=== PATIENT | male | born 1955 | race Caucasian/White ===

== ENCOUNTER 2017-07-03 19:46 | Outpatient (CLI) | payer MEDICAID | END 2017-07-03 19:47 | disposition short-term general hospital (02) | LOC: EMS 19:46 | PROVIDERS: ATTEND Surgery | DX: I21.3 ST elevation (STEMI) myocardial infarction of unspecified site (principal) | CPT/HCPCS: A0425; A0426 ==

== ENCOUNTER 2017-07-10 11:26 | Outpatient (CLI) | payer MEDICAID | END 2017-07-10 11:27 | disposition short-term general hospital (02) | LOC: EMS 11:26 | PROVIDERS: ATTEND Surgery | DX: R61 Generalized hyperhidrosis (principal); R42 Dizziness and giddiness | CPT/HCPCS: A0425; A0427 ==

== ENCOUNTER 2018-01-01 08:00 | Outpatient (CLI) | payer MEDICAID ==
[2018-01-01 10:47] LABS: H. PYLORIS ANTIGEN STL NEGATIVE (Negative)
== END 2018-01-01 08:01 | disposition home or self-care (01) ==
LOC: LAB.R 08:00
PROVIDERS: ATTEND Family Medicine
DX: R11.2 Nausea with vomiting, unspecified (principal)
CPT/HCPCS: 87338

== ENCOUNTER 2019-01-17 11:58 | Outpatient (CLI) | payer MEDICAID ==
[2019-01-17 19:31] LABS: T4 (THYROXINE) 11.95 ug/dL (6.09-12.23)
== END 2019-01-17 11:59 | disposition home or self-care (01) ==
LOC: LAB.WCP 11:58
PROVIDERS: ATTEND Family Medicine
DX: I10 Essential (primary) hypertension (principal)
CPT/HCPCS: 36415; 84436; 84443; 84481

== ENCOUNTER 2019-06-09 09:56 | Outpatient (CLI) | payer MEDICAID ==
--- NOTE | 2019-06-09 11:54 | XRAY Report ---
Reason: COUGH Procedure Date: 06/09/2019 Accession Number: [id number] / [id number] Procedure: WCP - Chest 2 View X-Ray CPT Code: 81333 Final Report FULL RESULT: EXAM: CHEST RADIOGRAPHY EXAM DATE: 06/09/2019 10:08 AM. CLINICAL HISTORY: Cough for 3 months and night sweats for one week. COMPARISON: CHEST 1 VIEW 07/03/2017 7:26 PM. TECHNIQUE: 2 views. FINDINGS: Lungs/Pleura: No focal opacities evident. No pleural effusion. No pneumothorax. Normal volumes. Mediastinum: Heart and mediastinal contours are unremarkable. Other: None. IMPRESSION: No acute cardiopulmonary abnormality. RADIA
[2019-06-09 13:01] LABS: BASOPHILS # (AUTO) 0.1 10^3/uL (0.0-0.1); BASOPHILS % (AUTO) 0.5 %; EOSINOPHILS # (AUTO) 0.1 10^3/uL (0.0-0.7); EOSINOPHILS % (AUTO) 0.8 %; HGB - HEMOGLOBIN 15.2 g/dL (14.0-18.0); LYMPHOCYTES # (AUTO) 2.3 10^3/uL (1.5-3.5); LYMPHOCYTES % (AUTO) 25.6 %; MEAN CORPUSCULAR HEMOGLOBIN 31.3 pg (27.0-31.0); MEAN CORPUSCULAR VOLUME 94.7 fL (80.0-94.0); MEAN PLATELET VOLUME 11.2 fL (7.4-11.4); MONOCYTES # (AUTO) 0.6 10^3/uL (0.0-1.0); MONOCYTES % (AUTO) 6.7 %; NEUTROPHILS % (AUTO) 65.9 %; PLT - PLATELET COUNT 181 10^3/uL (130-450); RED BLOOD COUNT 4.86 10^6/uL (4.70-6.10); RED CELL DISTRIBUTION WIDTH 12.4 % (12.0-15.0); WHITE BLOOD COUNT 9.1 x10^3/uL (4.8-10.8)
== END 2019-06-09 23:59 | disposition home or self-care (01) ==
LOC: DI.WCP 09:56
PROVIDERS: ATTEND Nurse Practitioner Family
DX: R05 Cough (principal); R61 Generalized hyperhidrosis
CPT/HCPCS: 36415; 71046; 85025

== ENCOUNTER 2020-05-18 14:55 | Outpatient (CLI) | payer MEDICAID ==
[2020-05-18 18:57] LABS: CK- CREATINE KINASE 164 IU/L (22-269)
[2020-05-18 19:06] LABS: CRP - C-REACTIVE PROTEIN < 1.0 mg/dL (0-1.0)
== END 2020-05-18 23:59 | disposition home or self-care (01) ==
LOC: LAB.WCP 14:55
PROVIDERS: ATTEND Family Medicine
DX: M94.0 Chondrocostal junction syndrome [Tietze] (principal)
CPT/HCPCS: 36415; 82550; 85651; 86140

== ENCOUNTER 2020-06-10 11:15 | Outpatient (CLI) | payer MEDICAID ==
[2020-06-10 11:26] LABS: BASOPHILS # (AUTO) 0.1 10^3/uL (0.0-0.1); BASOPHILS % (AUTO) 0.8 %; EOSINOPHILS # (AUTO) 0.1 10^3/uL (0.0-0.7); EOSINOPHILS % (AUTO) 0.9 %; HGB - HEMOGLOBIN 15.1 g/dL (14.0-18.0); LYMPHOCYTES # (AUTO) 3.1 10^3/uL (1.5-3.5); LYMPHOCYTES % (AUTO) 29.7 %; MEAN CORPUSCULAR HEMOGLOBIN 32.1 pg (27.0-31.0); MEAN CORPUSCULAR HGB CONC 33.7 g/dL (32.0-36.0); MEAN CORPUSCULAR VOLUME 95.3 fL (80.0-94.0); MEAN PLATELET VOLUME 10.4 fL (7.4-11.4); MONOCYTES # (AUTO) 0.8 10^3/uL (0.0-1.0); MONOCYTES % (AUTO) 7.5 %; NEUTROPHILS # (AUTO) 6.4 10^3/uL (1.5-6.6); NEUTROPHILS % (AUTO) 60.6 %; PLT - PLATELET COUNT 170 10^3/uL (130-450); RED CELL DISTRIBUTION WIDTH 12.2 % (12.0-15.0); WHITE BLOOD COUNT 10.5 x10^3/uL (4.8-10.8)
--- NOTE | 2020-06-10 12:27 | XRAY Report ---
PROCEDURE: Chest 2 View X-Ray INDICATIONS: COSTOCHONDRITIS TECHNIQUE: 2 view(s) of the chest. COMPARISON: 06/09/2019. FINDINGS: Surgical changes and devices: Coronary stent is again noted. Lungs and pleura: No pleural effusions or pneumothorax. Lungs are clear. Mediastinum: Mediastinal contours are normal. Heart size is normal. Bones and chest wall: No suspicious bony abnormalities. Soft tissues appear unremarkable. IMPRESSION: Stable examination of the chest without acute cardiopulmonary abnormalities. Reviewed by: Audie Barrera MD on 06/10/2020 12:26 PM PST Approved by: Audie Barrera MD on 06/10/2020 12:26 PM PST Station ID: [id number]
== END 2020-06-10 11:16 | disposition home or self-care (01) ==
LOC: LAB 11:15 → DI 11:16
PROVIDERS: ATTEND Family Medicine
DX: M94.0 Chondrocostal junction syndrome [Tietze] (principal)
CPT/HCPCS: 36415; 71046; 85025; 85651; 86140

== ENCOUNTER 2020-08-05 08:00 | Outpatient (CLI) | payer MEDICAID | END 2020-08-05 08:01 | disposition home or self-care (01) | LOC: LAB.R 08:00 | PROVIDERS: ATTEND Physician Assistant Medical | DX: N41.9 Inflammatory disease of prostate, unspecified (principal) | CPT/HCPCS: 87086 ==

== ENCOUNTER 2020-08-12 16:52 | Outpatient (CLI) | payer MEDICAID | END 2020-08-12 16:53 | disposition home or self-care (01) | LOC: COV 16:52 | PROVIDERS: ATTEND Family Medicine | DX: R50.9 Fever, unspecified (principal); M79.10 Myalgia, unspecified site; R53.83 Other fatigue; R09.81 Nasal congestion; Z20.822 Contact with and (suspected) exposure to COVID-19 ==

== ENCOUNTER 2020-11-01 06:23 | Emergency (ER) | payer MEDICAID ==
[2020-11-01 06:39] VITALS: BP 144/73
--- NOTE | 2020-11-01 06:45 | ED Physician Documentation ---
PD HPI CHEST PAIN - Stated complaint Stated Complaint: LIGHT HEADED/NAUSEA/CP - Chief complaint Chief Complaint: Cardiac - History obtained from History obtained from: Patient - History of Present Illness Timing - onset: How many hours ago (9-10), Last night (about 9 pm last evening, onset at rest of substernal to epigastric area pressure/pain. Abated some so that he slept, but still having symptoms this morning.) Timing - duration: Hours (9-10) Timing - details: Abrupt onset, Still present, Waxing and waning. No: Intermittant Quality: Pressure, Aching Location: Substernal, Epigastric Radiation: No: Jaw, Neck, Back Improved by: No: Rest Worsened by: No: Inspiration, Movement, Palpation Associated symptoms: No: Shortness of air, Diaphoresis, Nausea, Feeling faint / dizzy Similar symptoms before: Diagnosis (had [place] 3 years ago with similar (though worse) symptoms.) Recently seen: Not recently seen Review of Systems Constitutional: denies: Fever, Chills Nose: denies: Rhinorrhea / runny nose, Congestion Throat: denies: Sore throat Cardiac: reports: Chest pain / pressure. denies: Palpitations, Pedal edema, Calf pain Respiratory: denies: Dyspnea, Cough GI: denies: Abdominal Pain, Nausea, Vomiting Skin: denies: Rash Musculoskeletal: denies: Extremity swelling Neurologic: denies: Generalized weakness, Near syncope PD PAST MEDICAL HISTORY - Past Medical History Past Medical History: Yes Cardiovascular: [place] (3 years ago with 3 stents placed and has done well. Pt states resting HR typically 48-55 without betablockers. ), Other (costchondritis recurrently left chestwall. ) Respiratory: None Endocrine/Autoimmune: None - Past Surgical History Past Surgical History: Yes General: Appendectomy - Present Medications Home Medications: Ambulatory Orders Medication Instructions Recorded Confirmed Aspirin [Aspirin EC] 81 mg PO DAILY 11/01/20 11/01/20 Atorvastatin [Lipitor] 40 mg PO DAILY 11/01/20 11/01/20 Clopidogrel [Plavix] 75 mg PO ONCE 11/01/20 11/01/20 - Allergies Allergies/Adverse Reactions: Allergies Allergy/AdvReac Type Severity Reaction Status Date / Time No Known Drug Allergies Allergy Verified 11/01/20 06:39 - Social History Does the pt smoke?: No Smoking Status: Never smoker Does the pt drink ETOH?: No Does the pt have substance abuse?: No - Immunizations Immunizations are current?: Yes - POLST Patient has POLST: No PD ED PE NORMAL - Vitals Vital signs reviewed: Yes - General General: Alert and oriented X 3, No acute distress, Well developed/nourished - Neck Neck: Supple, no meningeal sign, No adenopathy - Cardiac Cardiac: RRR, No murmur - Respiratory Respiratory: Clear bilaterally - Abdomen Abdomen: Normal bowel sounds, Soft, Non distended, No organomegaly, Other (mild epigastric tender without guarding. Slgiht left sternal border chestwall tenderness which pt states is chronic recurrent for him and different from current symptoms.) - Derm Derm: Normal color, Warm and dry - Extremities Extremities: No tenderness to palpate, No edema, No calf tenderness / cord - Neuro Neuro: Alert and oriented X 3, No motor deficit, Normal speech Results - Vitals Vitals: Vital Signs - 24 hr 11/01/20 11/01/20 11/01/20 06:30 06:39 06:59 Temperature 36.8 C 36.6 C Heart Rate 50 L 44 L 51 L Respiratory 12 13 13 Rate Blood Pressure 144/73 H 144/73 H 144/73 H O2 Saturation 100 100 Oxygen O2 Source Room air - EKG (time done) 06:31 Rate: Rate (enter#) (50) Rhythm: Sinus bradycardia [place]: Normal Intervals: Normal ME QRS: Normal Ischemia: Normal ST segments. No: ST elevation c/w ischemia, ST depression - Labs Labs: Laboratory Tests 11/01/20 11/01/20 11/01/20 06:45 06:45 06:45 WBC 7.2 RBC 5.03 Hgb 16.2 Hct 47.6 MCV 94.6 H MCH 32.2 H MCHC 34.0 RDW 12.5 Plt Count 138 MPV 11.0 Neut # (Auto) 5.1 Lymph # (Auto) 1.4 L [place] # (Auto) 0.5 Eos # (Auto) 0.1 Baso # (Auto) 0.0 Absolute Nucleated RBC 0.00 Nucleated RBC % 0.0 Sodium 137 Potassium 3.6 Chloride 105 Carbon Dioxide 24 Anion Gap 8.0 BUN 11 Creatinine 1.0 Estimated GFR (MDRD) 75 L Glucose 117 H Calcium 9.6 Total Bilirubin 0.9 AST 32 ALT 30 Alkaline Phosphatase 51 Troponin I High Sens 3.8 Total Protein 7.3 Albumin 4.5 Globulin 2.8 Albumin/Globulin Ratio 1.6 Lipase 36 - Rads (name of study) chest xray Radiology: Prelim report reviewed, See rad report PD MEDICAL DECISION MAKING - ED course Complexity details: reviewed results, re-evaluated patient (feeling okay here. ), considered differential (consider reflux or such, but does have history of ACS with stents. ECG good and will check troponins. ), d/w patient Departure - Departure Disposition: 01 Home, Self Care Clinical Impression: Chest discomfort, Nausea Clinical Impression: (Ruled Out): Myocardial infarction Condition: Stable Record reviewed to determine appropriate education?: Yes Instructions: ED Chest Pain NonCardiac Follow-Up: Yunior Gomez MD [Primary Care Provider] - Comments: Your EKG and troponin are normal. Chest x-ray is clear. Your symptoms are not related to an acute heart attack nor signs of heart failure. Consider meclizine or cetirizine if needed for congestion or nausea. Stay well-hydrated. Continue usual medicines. Return if worsening or changing symptoms or unresolved over the next couple of days. Discharge Date/Time: 11/01/20 07:45
--- OUTSIDE RECORDS SUMMARY | 2020-11-01 06:49 | EXTERNAL MEDICAL SUMMARY RPT | Continuity of Care Document ---
:1955 Demographics Phone Unavailable Preferred Language Unknown Marital Status Unknown Moravian Affiliation Unknown Race Unknown Ethnic Group Unknown Author Organization [facility] Address [address] [phone] Phone Social History date description facility [phone]
[2020-11-01 06:53] LABS: BASOPHILS % (AUTO) 0.6 %; EOSINOPHILS # (AUTO) 0.1 10^3/uL (0.0-0.7); EOSINOPHILS % (AUTO) 0.8 %; HCT - HEMATOCRIT 47.6 % (42.0-52.0); HGB - HEMOGLOBIN 16.2 g/dL (14.0-18.0); LYMPHOCYTES # (AUTO) 1.4 10^3/uL (1.5-3.5); LYMPHOCYTES % (AUTO) 20.1 %; MEAN CORPUSCULAR HEMOGLOBIN 32.2 pg (27.0-31.0); MEAN CORPUSCULAR VOLUME 94.6 fL (80.0-94.0); MONOCYTES # (AUTO) 0.5 10^3/uL (0.0-1.0); MONOCYTES % (AUTO) 7.1 %; NEUTROPHILS # (AUTO) 5.1 10^3/uL (1.5-6.6); NEUTROPHILS % (AUTO) 70.8 %; PLT - PLATELET COUNT 138 10^3/uL (130-450); RED BLOOD COUNT 5.03 10^6/uL (4.70-6.10); RED CELL DISTRIBUTION WIDTH 12.5 % (12.0-15.0); WHITE BLOOD COUNT 7.2 x10^3/uL (4.8-10.8)
[2020-11-01 07:09] LABS: ALBUMIN 4.5 g/dL (3.2-5.5); ALBUMIN/GLOBULIN RATIO 1.6 (1.0-2.2); BILIRUBIN,TOTAL 0.9 mg/dL (0.2-1.0); CALCIUM 9.6 mg/dL (8.5-10.3); POTASSIUM 3.6 mmol/L (3.5-5.0); TOTAL PROTEIN 7.3 g/dL (6.7-8.2)
--- NOTE | 2020-11-01 08:15 | XRAY Report ---
PROCEDURE: Chest 1 View X-Ray INDICATIONS: Chest pain TECHNIQUE: One view of the chest was acquired. COMPARISON: None. FINDINGS: Surgical changes and devices: None. Lungs and pleura: No pleural effusions or pneumothorax. Lungs are clear. Mediastinum: Mediastinal contours appear normal. Heart size is normal. Bones and chest wall: No suspicious bony lesions. Overlying soft tissues appear unremarkable. IMPRESSION: No acute disease. Reviewed by: Jamel Villa MD on 11/01/2020 8:14 AM PDT Approved by: Jamel Villa MD on 11/01/2020 8:14 AM PDT Station ID: [id number]
== END 2020-11-01 07:45 | disposition home or self-care (01) ==
LOC: ED 06:23
DX: R07.89 Other chest pain (principal); R11.0 Nausea; R10.13 Epigastric pain; I25.10 Atherosclerotic heart disease of native coronary artery without angina pectoris; I25.2 Old myocardial infarction; Z95.5 Presence of coronary angioplasty implant and graft; Z79.02 Long term (current) use of antithrombotics/antiplatelets; Z79.82 Long term (current) use of aspirin
CPT/HCPCS: 36415; 80053; 83690; 84484; 85025; 93005; 99284

== ENCOUNTER 2020-11-03 08:24 | Outpatient (CLI) | payer MEDICAID ==
[2020-11-03 12:06] LABS: BASOPHILS % (AUTO) 0.5 %; EOSINOPHILS # (AUTO) 0.1 10^3/uL (0.0-0.7); EOSINOPHILS % (AUTO) 1.6 %; HGB - HEMOGLOBIN 15.4 g/dL (14.0-18.0); LYMPHOCYTES # (AUTO) 2.2 10^3/uL (1.5-3.5); LYMPHOCYTES % (AUTO) 29.3 %; MEAN CORPUSCULAR HEMOGLOBIN 32.3 pg (27.0-31.0); MEAN CORPUSCULAR HGB CONC 34.2 g/dL (32.0-36.0); MEAN CORPUSCULAR VOLUME 94.3 fL (80.0-94.0); MEAN PLATELET VOLUME 11.8 fL (7.4-11.4); MONOCYTES # (AUTO) 0.6 10^3/uL (0.0-1.0); MONOCYTES % (AUTO) 7.7 %; NEUTROPHILS # (AUTO) 4.6 10^3/uL (1.5-6.6); NEUTROPHILS % (AUTO) 60.6 %; PLT - PLATELET COUNT 140 10^3/uL (130-450); RED BLOOD COUNT 4.77 10^6/uL (4.70-6.10); RED CELL DISTRIBUTION WIDTH 12.2 % (12.0-15.0); WHITE BLOOD COUNT 7.5 x10^3/uL (4.8-10.8)
[2020-11-03 12:19] LABS: THYROID STIMULATING HORMONE 2.13 uIU/mL (0.34-5.60)
[2020-11-03 12:23] LABS: ALBUMIN 4.5 g/dL (3.2-5.5); ALBUMIN/GLOBULIN RATIO 1.8 (1.0-2.2); ALKALINE PHOSPHATASE 50 IU/L (42-121); ALT ALANINE AMINOTRANSFERASE 28 IU/L (10-60); AST ASPARTATE AMINOTRANSFERASE 27 IU/L (10-42); BILIRUBIN,TOTAL 0.8 mg/dL (0.2-1.0); BUN - BLOOD UREA NITROGEN 18 mg/dL (6-20); CALCIUM 9.8 mg/dL (8.5-10.3); CARBON DIOXIDE - CO2 27 mmol/L (21-32); CHLORIDE 105 mmol/L (101-111); CHOL/HDL RATIO 2.7 (<5.0); CHOLESTEROL 132 mg/dL; CREATININE 0.9 mg/dL (0.6-1.2); GFR - MDRD 85 (>89); GLUCOSE 102 mg/dL (70-100); HDL CHOLESTEROL 49 mg/dL; LDL CHOLESTEROL,CALCULATED 71 mg/dL; LDL/HDL RATIO 1.4 (<3.6); POTASSIUM 4.2 mmol/L (3.5-5.0); SODIUM 140 mmol/L (135-145); TRIGLYCERIDES 61 mg/dL; VLDL CHOLESTEROL 12 mg/dL
== END 2020-11-03 23:59 | disposition home or self-care (01) ==
LOC: LAB.WCP 08:24
PROVIDERS: ATTEND Internal Medicine
DX: I10 Essential (primary) hypertension (principal); Z12.5 Encounter for screening for malignant neoplasm of prostate; I25.10 Atherosclerotic heart disease of native coronary artery without angina pectoris
CPT/HCPCS: 36415; 80053; 80061; 83721; 84153; 84443; 85025

== ENCOUNTER 2021-03-24 08:00 | Outpatient (CLI) | payer MEDICAID ==
[2021-03-24 12:59] LABS: RHEUMATOID FACTOR NEGATIVE (Negative)
[2021-03-26 13:21] LABS: ANA SCREEN NEGATIVE (NEGATIVE)
== END 2021-03-24 23:59 | disposition home or self-care (01) ==
LOC: LAB.WCP 08:00
PROVIDERS: ATTEND Internal Medicine
DX: M45.0 Ankylosing spondylitis of multiple sites in spine (principal)
CPT/HCPCS: 36415; 85651; 86038; 86140; 86200; 86430; 86812

== ENCOUNTER 2021-04-19 08:52 | Outpatient (CLI) | payer MEDICAID ==
--- NOTE | 2021-04-19 10:14 | XRAY Report ---
PROCEDURE: Knee 2 View BILAT INDICATIONS: BILATERAL KNEE PX TECHNIQUE: 2 views of the bilateral knee(s) were acquired. COMPARISON: None. FINDINGS: Bones: AP and lateral weightbearing views of the bilateral knee were acquired. No fractures or dislo cations. No suspicious bony lesions. Mild tricompartmental degenerative changes of the bilateral kn ee. No significant joint space loss on weightbearing views. Soft tissues: Very small right joint effusion. No left joint effusion. No suspicious soft tissue ca lcifications. IMPRESSION: 1. Bilateral knee without acute fracture or dislocation. 2. Mild tricompartmental osteoarthrosis of the bilateral knee. 3. Very small right suprapatellar joint effusion. Reviewed by: Audie Barrera MD on 04/19/2021 10:13 AM PDT Approved by: Audie Barrera MD on 04/19/2021 10:13 AM PDT Station ID: [id number]
--- NOTE | 2021-04-19 10:17 | XRAY Report ---
PROCEDURE: Sacrum/Coccyx INDICATIONS: ANKYLOSING SPONDYLITIS TECHNIQUE: 3 views of the sacrum and coccyx acquired. COMPARISON: None FINDINGS: Bones: No acute fractures or dislocations. No suspicious bony lesions. Multilevel spondylosis of t he imaged lumbar spine. Degenerative changes of the bilateral hip. No significant erosions or scleros is. Soft tissues: Visualized bowel gas pattern is normal. No suspicious soft tissue densities. IMPRESSION: Multilevel lumbar spondylosis. No evidence for ankylosis. Bilateral femoroacetabular degenerative change. Reviewed by: Audie Barrera MD on 04/19/2021 10:16 AM PDT Approved by: Audie Barrera MD on 04/19/2021 10:16 AM PDT Station ID: [id number]
== END 2021-04-19 08:53 | disposition home or self-care (01) ==
LOC: DI.N 08:52
PROVIDERS: ATTEND Internal Medicine
DX: M45.0 Ankylosing spondylitis of multiple sites in spine (principal); M16.0 Bilateral primary osteoarthritis of hip; M17.0 Bilateral primary osteoarthritis of knee; M25.461 Effusion, right knee

== ENCOUNTER 2021-10-31 07:06 | Outpatient (CLI) | payer MEDICAID ==
[2021-10-31 12:12] LABS: BASOPHILS % (AUTO) 0.5 %; EOSINOPHILS # (AUTO) 0.2 10^3/uL (0.0-0.7); EOSINOPHILS % (AUTO) 2.1 %; HGB - HEMOGLOBIN 15.6 g/dL (14.0-18.0); LYMPHOCYTES # (AUTO) 2.2 10^3/uL (1.5-3.5); LYMPHOCYTES % (AUTO) 28.6 %; MEAN CORPUSCULAR HEMOGLOBIN 31.6 pg (27.0-31.0); MEAN CORPUSCULAR HGB CONC 33.2 g/dL (32.0-36.0); MEAN CORPUSCULAR VOLUME 95.1 fL (80.0-94.0); MEAN PLATELET VOLUME 11.4 fL (7.4-11.4); MONOCYTES # (AUTO) 0.7 10^3/uL (0.0-1.0); MONOCYTES % (AUTO) 8.3 %; NEUTROPHILS # (AUTO) 4.7 10^3/uL (1.5-6.6); NEUTROPHILS % (AUTO) 60.2 %; PLT - PLATELET COUNT 144 10^3/uL (130-450); RED BLOOD COUNT 4.94 10^6/uL (4.70-6.10); RED CELL DISTRIBUTION WIDTH 12.3 % (12.0-15.0); WHITE BLOOD COUNT 7.8 x10^3/uL (4.8-10.8)
[2021-10-31 12:46] LABS: ALBUMIN 4.7 g/dL (3.2-5.5); ALBUMIN/GLOBULIN RATIO 1.7 (1.0-2.2); ALKALINE PHOSPHATASE 54 IU/L (42-121); ALT ALANINE AMINOTRANSFERASE 29 IU/L (10-60); AST ASPARTATE AMINOTRANSFERASE 28 IU/L (10-42); BUN - BLOOD UREA NITROGEN 17 mg/dL (6-20); CALCIUM 9.8 mg/dL (8.5-10.3); CARBON DIOXIDE - CO2 27 mmol/L (21-32); CHLORIDE 102 mmol/L (101-111); CHOL/HDL RATIO 2.9 (<5.0); CHOLESTEROL 134 mg/dL; CREATININE 1.1 mg/dL (0.6-1.2); GFR - MDRD 67 (>89); GLUCOSE 113 mg/dL (70-100); HDL CHOLESTEROL 46 mg/dL; LDL CHOLESTEROL,CALCULATED 71 mg/dL; LDL/HDL RATIO 1.5 (<3.6); POTASSIUM 4.1 mmol/L (3.5-5.0); SODIUM 139 mmol/L (135-145); TOTAL PROTEIN 7.5 g/dL (6.7-8.2); TRIGLYCERIDES 83 mg/dL; VLDL CHOLESTEROL 17 mg/dL
[2021-10-31 12:48] LABS: THYROID STIMULATING HORMONE 2.31 uIU/mL (0.34-5.60)
[2021-10-31 12:53] LABS: PROLACTIN 4.09 ng/mL
[2021-10-31 13:16] LABS: LUTEINIZING HORMONE 3.77 mIU/mL
== END 2021-10-31 07:07 | disposition home or self-care (01) ==
LOC: LAB.N 07:06
PROVIDERS: ATTEND Internal Medicine Interventional Cardiology
DX: I25.2 Old myocardial infarction (principal); I25.10 Atherosclerotic heart disease of native coronary artery without angina pectoris; R61 Generalized hyperhidrosis; Z12.5 Encounter for screening for malignant neoplasm of prostate; R00.1 Bradycardia, unspecified
CPT/HCPCS: 36415; 80053; 80061; 83002; 83615; 83721; 84146; 84153; 84403; 84443; 85025

== ENCOUNTER 2022-10-24 07:29 | Outpatient (CLI) | payer MEDICARE, MEDICAID ==
[2022-10-24 11:37] LABS: BASOPHILS # (AUTO) 0.1 10^3/uL (0.0-0.1); BASOPHILS % (AUTO) 0.7 %; EOSINOPHILS # (AUTO) 0.2 10^3/uL (0.0-0.7); EOSINOPHILS % (AUTO) 2.1 %; HCT - HEMATOCRIT 44.5 % (42.0-52.0); HGB - HEMOGLOBIN 14.6 g/dL (14.0-18.0); LYMPHOCYTES # (AUTO) 2.9 10^3/uL (1.5-3.5); LYMPHOCYTES % (AUTO) 33.9 %; MEAN CORPUSCULAR HEMOGLOBIN 32.2 pg (27.0-31.0); MEAN CORPUSCULAR HGB CONC 32.8 g/dL (32.0-36.0); MEAN CORPUSCULAR VOLUME 98.2 fL (80.0-94.0); MEAN PLATELET VOLUME 11.7 fL (7.4-11.4); MONOCYTES # (AUTO) 0.8 10^3/uL (0.0-1.0); MONOCYTES % (AUTO) 8.8 %; NEUTROPHILS # (AUTO) 4.6 10^3/uL (1.5-6.6); NEUTROPHILS % (AUTO) 53.9 %; PLT - PLATELET COUNT 132 10^3/uL (130-450); RED BLOOD COUNT 4.53 10^6/uL (4.70-6.10); RED CELL DISTRIBUTION WIDTH 12.9 % (12.0-15.0); WHITE BLOOD COUNT 8.6 x10^3/uL (4.8-10.8)
[2022-10-24 12:19] LABS: ALBUMIN 4.1 g/dL (3.2-5.5); ALBUMIN/GLOBULIN RATIO 1.4 (1.0-2.2); ALKALINE PHOSPHATASE 65 IU/L (42-121); ALT ALANINE AMINOTRANSFERASE 26 IU/L (10-60); AST ASPARTATE AMINOTRANSFERASE 21 IU/L (10-42); BILIRUBIN,TOTAL 0.7 mg/dL (0.2-1.0); BUN - BLOOD UREA NITROGEN 21 mg/dL (6-20); CALCIUM 9.3 mg/dL (8.5-10.3); CARBON DIOXIDE - CO2 28 mmol/L (21-32); CHLORIDE 107 mmol/L (101-111); CHOL/HDL RATIO 3.4 (<5.0); CHOLESTEROL 146 mg/dL; CREATININE 1.1 mg/dL (0.6-1.2); GFR - MDRD 67 (>89); GLUCOSE 113 mg/dL (70-100); HDL CHOLESTEROL 43 mg/dL; LDL CHOLESTEROL,CALCULATED 78 mg/dL; LDL/HDL RATIO 1.8 (<3.6); POTASSIUM 4.1 mmol/L (3.5-5.0); SODIUM 139 mmol/L (135-145); TRIGLYCERIDES 127 mg/dL; VLDL CHOLESTEROL 25 mg/dL
== END 2022-10-24 07:30 | disposition home or self-care (01) ==
LOC: LAB.N 07:29
PROVIDERS: ATTEND Internal Medicine
DX: I10 Essential (primary) hypertension (principal); I25.10 Atherosclerotic heart disease of native coronary artery without angina pectoris; Z12.5 Encounter for screening for malignant neoplasm of prostate
CPT/HCPCS: 36415; 80053; 80061; 85025; G0103; 83721; 84153

== ENCOUNTER 2022-11-23 09:34 | Outpatient (CLI) | payer MEDICARE ==
[2022-11-23 09:53] LABS: CREATININE 1.1 mg/dL (0.6-1.2); POTASSIUM 4.1 mmol/L (3.5-5.0)
== END 2022-11-23 09:35 | disposition home or self-care (01) ==
LOC: LAB 09:34
PROVIDERS: ATTEND Internal Medicine
DX: I10 Essential (primary) hypertension (principal)
CPT/HCPCS: 36415; 80048

== ENCOUNTER 2023-05-24 12:48 | Outpatient (CLI) | payer MEDICARE ==
--- NOTE | 2023-05-24 16:48 | MRI Report ---
PROCEDURE: KNEE WO - LT INDICATIONS: LEFT KNEE INSTABILITY TECHNIQUE: Noncontrast sagittal PD fast spin echo and T2 fast spin echo with fat saturation, sagittal 3-D gradie nt sequence with fat saturation; coronal T1 spin echo and PD fast spin echo with fat saturation, and axial PD fast spin echo with fat saturation through the knee. COMPARISON: None. FINDINGS: Image quality: Excellent. Menisci: Vertically oriented linear high T2 signal intensity traverses the middle third of the senior electrical designer ior horn medial meniscus, demonstrating superior and inferior articular surface extension, indicating vertical tearing. Linear horizontal high T2 signal intensity traverses the inner, middle, peripheral thirds of the medial meniscal body, demonstrating inferior articular surface extension, indicating h orizontal tearing. Lateral meniscus is intact. Cruciate ligaments: The anterior and posterior cruciate ligaments appear intact. Medial structures: The medial collateral ligament appears intact. Visualized portions of the pes ans erinus tendons appear normal. No abnormal bursal fluid. Lateral structures: The lateral collateral ligament, long and short heads of the biceps femoris tend on appear intact. The popliteus tendon appears normal. Iliotibial band appears normal. Anterior structures: The quadriceps and patellar tendons appear intact. Patellar alignment is navdeep l. No femoral trochlear dysplasia or ventral trochlear prominence. No edema in the infrapatellar fa t pad. Bones and cartilage: No bone marrow contusions or fractures. Mild tricompartmental periarticular ost eophyte formation is present. Moderate articular cartilage loss diffusely overlies the weightbearing aspects of the medial femoral condyle and medial tibial plateau. Mild articular cartilage loss overli es the weightbearing aspects of the lateral femoral condyle and lateral tibial plateau. Joint space: There is a small knee joint effusion and a small Jones's cyst. Normal appearing synovi al plicae are incidentally noted. IMPRESSION: 1. Complex tearing of the medial meniscus. 2. Knee joint effusion and Jones's cyst. 3. Osteoarthritis with joint space narrowing. Reviewed by: Real Cano MD on 05/24/2023 4:47 PM PDT Approved by: Real Cano MD on 05/24/2023 4:47 PM PDT Station ID: [id number]
== END 2023-05-24 12:49 | disposition home or self-care (01) ==
LOC: DI 12:48
PROVIDERS: ATTEND Internal Medicine
DX: S83.232A Complex tear of medial meniscus, current injury, left knee, initial encounter (principal); M71.22 Synovial cyst of popliteal space [Baker], left knee; M25.462 Effusion, left knee; M17.12 Unilateral primary osteoarthritis, left knee

== ENCOUNTER 2023-08-28 07:30 | Outpatient (CLI) | payer MEDICARE | END 2023-08-28 07:45 | disposition home or self-care (01) | LOC: LAB.N 07:30 | PROVIDERS: ATTEND Physician Assistant | DX: R30.0 Dysuria (principal) | CPT/HCPCS: 87086 ==

== ENCOUNTER 2023-11-27 08:21 | Outpatient (CLI) | payer MEDICARE ==
[2023-11-27 08:39] LABS: BASOPHILS # (AUTO) 0.1 10^3/uL (0.0-0.1); BASOPHILS % (AUTO) 0.8 %; EOSINOPHILS # (AUTO) 0.1 10^3/uL (0.0-0.7); EOSINOPHILS % (AUTO) 1.7 %; HCT - HEMATOCRIT 46.3 % (42.0-52.0); HGB - HEMOGLOBIN 15.1 g/dL (14.0-18.0); LYMPHOCYTES % (AUTO) 30.1 %; MEAN CORPUSCULAR HEMOGLOBIN 31.1 pg (27.0-31.0); MEAN CORPUSCULAR HGB CONC 32.6 g/dL (32.0-36.0); MEAN CORPUSCULAR VOLUME 95.3 fL (80.0-94.0); MEAN PLATELET VOLUME 10.3 fL (7.4-11.4); MONOCYTES # (AUTO) 0.6 10^3/uL (0.0-1.0); MONOCYTES % (AUTO) 8.7 %; NEUTROPHILS # (AUTO) 3.9 10^3/uL (1.5-6.6); NEUTROPHILS % (AUTO) 58.4 %; PLT - PLATELET COUNT 154 10^3/uL (130-450); RED BLOOD COUNT 4.86 10^6/uL (4.70-6.10); RED CELL DISTRIBUTION WIDTH 12.3 % (12.0-15.0); WHITE BLOOD COUNT 6.6 x10^3/uL (4.8-10.8)
[2023-11-27 08:53] LABS: ALBUMIN 4.5 g/dL (3.2-5.5); ALBUMIN/GLOBULIN RATIO 1.6 (1.0-2.2); ALKALINE PHOSPHATASE 58 IU/L (42-121); ALT ALANINE AMINOTRANSFERASE 25 IU/L (10-60); AST ASPARTATE AMINOTRANSFERASE 23 IU/L (10-42); BILIRUBIN,TOTAL 0.8 mg/dL (0.2-1.0); BUN - BLOOD UREA NITROGEN 15 mg/dL (6-20); CALCIUM 9.9 mg/dL (8.5-10.3); CARBON DIOXIDE - CO2 29 mmol/L (21-32); CHLORIDE 102 mmol/L (101-111); CHOL/HDL RATIO 2.8 (<5.0); CHOLESTEROL 120 mg/dL; GFR - MDRD 75 (>89); GLUCOSE 116 mg/dL (74-104); HDL CHOLESTEROL 43 mg/dL; LDL CHOLESTEROL,CALCULATED 63 mg/dL; LDL/HDL RATIO 1.5 (<3.6); POTASSIUM 3.9 mmol/L (3.5-4.5); SODIUM 136 mmol/L (135-145); TOTAL PROTEIN 7.3 g/dL (6.4-8.9); TRIGLYCERIDES 70 mg/dL (48-352); VLDL CHOLESTEROL 14 mg/dL
== END 2023-11-27 08:22 | disposition home or self-care (01) ==
LOC: LAB 08:21
PROVIDERS: ATTEND Internal Medicine
DX: E78.5 Hyperlipidemia, unspecified (principal); Z12.5 Encounter for screening for malignant neoplasm of prostate; I25.10 Atherosclerotic heart disease of native coronary artery without angina pectoris
CPT/HCPCS: 36415; 80053; 80061; 85025; G0103; 83721; 84153

== ENCOUNTER 2024-02-04 07:30 | Outpatient (CLI) | payer MEDICARE ==
[2024-02-04 08:09] LABS: ALBUMIN 4.4 g/dL (3.2-5.5); ALBUMIN/GLOBULIN RATIO 1.7 (1.0-2.2); ALKALINE PHOSPHATASE 61 IU/L (42-121); ALT ALANINE AMINOTRANSFERASE 25 IU/L (10-60); AST ASPARTATE AMINOTRANSFERASE 22 IU/L (10-42); BILIRUBIN,TOTAL 0.7 mg/dL (0.2-1.0); BUN - BLOOD UREA NITROGEN 15 mg/dL (6-20); CALCIUM 9.5 mg/dL (8.5-10.3); CARBON DIOXIDE - CO2 29 mmol/L (21-32); CHLORIDE 103 mmol/L (101-111); CHOL/HDL RATIO 3.2 (<5.0); CHOLESTEROL 112 mg/dL; CREATININE 0.9 mg/dL (0.6-1.3); GFR - MDRD 84 (>89); GLUCOSE 111 mg/dL (74-104); HDL CHOLESTEROL 35 mg/dL; LDL CHOLESTEROL,CALCULATED 57 mg/dL; LDL/HDL RATIO 1.6 (<3.6); SODIUM 135 mmol/L (135-145); TRIGLYCERIDES 101 mg/dL; VLDL CHOLESTEROL 20 mg/dL
== END 2024-02-04 07:31 | disposition home or self-care (01) ==
LOC: LAB 07:30
PROVIDERS: ATTEND Internal Medicine Interventional Cardiology
DX: I25.2 Old myocardial infarction (principal); Z95.5 Presence of coronary angioplasty implant and graft
CPT/HCPCS: 36415; 80053; 80061; 83721